=== PATIENT | female | born 1955 | race Caucasian/White ===

== ENCOUNTER 2016-10-05 11:01 | Emergency (ER) | payer BC ==
[~2016-10-05] VITALS: Ht 160 cm; Wt 102.3 kg
[2016-10-05 11:05] VITALS: TEMP 98
[2016-10-05] MEDS ORDERED: TOPAMAX50 MG PO (11:18)
[2016-10-05] MEDS ORDERED: VITAMIN D32000 I1 PO (11:18)
[2016-10-05] MEDS ORDERED: PRIL40 PO (11:19)
[2016-10-05] MEDS ORDERED: ZYRTEC 10MG10 MG PO (11:19)
[2016-10-05] MEDS ORDERED: ZANTAC 300300 MG PO (11:20)
[2016-10-05] MEDS ORDERED: CORTEF 20MG TAB20 MG PO (11:21)
[2016-10-05] MEDS ORDERED: SYNTHROID0.088 MG/T PO (11:21)
[2016-10-05] MEDS ORDERED: [UNRECOGNIZED DRUG - OTHER] (11:22)
[2016-10-05] MEDS ORDERED: PROMETRIUM100 MG PO (11:23)
[2016-10-05] MEDS ORDERED: ATARAX 25MG25 MG/TAB PO (11:23)
[2016-10-05] MEDS ORDERED: LASIX 40MG TABL40 MG PO (11:24)
[2016-10-05] MEDS ORDERED: CYTOMEL 2525 MCG/TAB PO (11:24)
[2016-10-05] MEDS ORDERED: VITAMIN C500 MG PO (11:24)
[2016-10-05] MEDS ORDERED: FERREX 150150 MG PO (11:25)
[2016-10-05] MEDS ORDERED: PREGNENOLONE (11:25)
[2016-10-05 12:18] LABS: BASO # 0.1 (0.0-0.2); BASO % 0.8 % (0.0-2.0); EOS # 0.2 (0.0-0.7); EOS % 2.8 % (0-4.0); GRAN # 3.2 (1.4-6.5); GRAN % 52.8 % (42.2-75.2); HEMATOCRIT 41.3 % (37.0-47.0); HEMOGLOBIN 13.1 g/dl (12.5-16.0); LYMPH # 2.3 (1.2-3.4); LYMPH % 36.7 % (20.0-51.0); MEAN CELL VOLUME 95 fl (80.0-100.0); MEAN CORPUSCULAR HEMOGLOBIN 30 pg (27.0-31.0); MEAN CORPUSCULAR HGB CONC 32 g/dl (33.0-37.0); MEAN PLATELET VOLUME 9.8 fl (7.4-10.4); MONO # 0.4 (0.1-0.6); MONO % 6.7 % (1.7-9.3); PLATELET COUNT 247 K/mm3 (130-400); RED BLOOD COUNT 4.35 M/mm3 (4.10-5.30); REDCELL DISTRIBUTION WIDTH-CV 13.3 % (11.5-14.5); WHITE BLOOD COUNT 6.1 K/mm3 (4.8-10.8)
[2016-10-05 12:42] LABS: PH 5 (5-8); URINE APPEARANCE Cloudy; URINE BACTERIA Rare /hpf; URINE BILIRUBIN Negative (NEGATIVE); URINE BLOOD Negative (NEGATIVE); URINE COLOR Amber; URINE GLUCOSE Negative (NEGATIVE); URINE KETONE Negative (NEGATIVE); URINE UROBILINOGEN Negative (NEGATIVE)
[2016-10-05 12:46] LABS: ADJUSTED CALCIUM 9.2 mg/dL (8.4-10.2); ALBUMIN 3.7 gm/dL (3.5-5.0); BILIRUBIN,TOTAL 1.2 mg/dL (0.0-1.0); CREATININE, serum 0.88 mg/dL (0.52-1.25); MAGNESIUM 2.4 mg/dL (1.6-2.3); PHOSPHOROUS 3.2 mg/dL (2.5-4.5); POTASSIUM 3.6 mmol/L (3.4-5.0); TOTAL PROTEIN 6.9 gm/dL (6.4-8.2)
[2016-10-05 15:47] VITALS: BP 134/78; PULSE 78
== END 2016-10-05 15:45 | disposition home or self-care (01) ==
LOC: COL.ER 11:01
PROVIDERS: Emergency Medicine
DX: R53.1 Weakness (principal); E03.9 Hypothyroidism, unspecified; R51 Headache
CPT/HCPCS: J1720; J7030

== ENCOUNTER 2018-05-11 22:47 | Emergency (ER) | payer BC ==
[~2018-05-11] VITALS: Ht 157.5 cm; Wt 100.0 kg
[~2018-05-11 22:47] MED LIST: ATARAX 25MG25 MG/TAB PO; CORTEF 20MG TAB20 MG PO; CYTOMEL 2525 MCG/TAB PO; FERREX 150150 MG PO; LASIX 40MG TABL40 MG PO; PREGNENOLONE; PRIL40 PO; PROMETRIUM100 MG PO; SYNTHROID0.088 MG/T PO; TOPAMAX 25MG25 M1 PO; VITAMIN C500 MG PO; VITAMIND3 5000 PO; ZANTAC 300300 MG PO; ZYRTEC 10MG10 MG PO; [UNRECOGNIZED DRUG - OTHER]
[2018-05-11 22:56] VITALS: TEMP 97.9
[2018-05-11 23:47] LABS: BASO # 0.1 (0.0-0.2); BASO % 0.7 % (0.0-2.0); EOS # 0.2 (0.0-0.7); EOS % 2.2 % (0-4.0); GRAN # 3.3 (1.4-6.5); HEMATOCRIT 39.6 % (37.0-47.0); HEMOGLOBIN 12.8 g/dl (12.5-16.0); LYMPH # 2.7 (1.2-3.4); LYMPH % 40.1 % (20.0-51.0); MEAN CELL VOLUME 96 fl (80.0-100.0); MEAN CORPUSCULAR HEMOGLOBIN 31 pg (27.0-31.0); MEAN CORPUSCULAR HGB CONC 32 g/dl (33.0-37.0); MEAN PLATELET VOLUME 9.8 fl (7.4-10.4); MONO # 0.5 (0.1-0.6); MONO % 7.9 % (1.7-9.3); PLATELET COUNT 235 K/mm3 (130-400); RED BLOOD COUNT 4.13 M/mm3 (4.10-5.30); REDCELL DISTRIBUTION WIDTH-CV 13.1 % (11.5-14.5)
[2018-05-12 00:04] LABS: ALANINE AMINOTRANSFERASE 21 U/L (9-52); ALBUMIN 3.8 gm/dL (3.5-5.0); ALKALINE PHOSPHATASE 56 U/L (50-136); ANION GAP 12 mmol/L (7-16); AST,SGOT 15 U/L (15-37); BILIRUBIN,TOTAL 0.5 mg/dL (0.0-1.0); BLOOD UREA NITROGEN 18 mg/dL (7-17); CALCIUM 8.6 mg/dL (8.4-10.2); CARBON DIOXIDE 26 mmol/L (22-30); CHLORIDE 105 mmol/L (98-107); CREATININE, serum 1.28 mg/dL (0.52-1.25); GLUCOSE 90 mg/dL (74-106); LIPASE 212 U/L (23-300); POTASSIUM 3.4 mmol/L (3.4-5.0); SODIUM 144 mmol/L (137-145); TOTAL PROTEIN 6.9 gm/dL (6.4-8.2)
[2018-05-12 00:16] LABS: TROPONIN-I < 0.012 ng/mL (0.000-0.034)
[2018-05-12 00:40] LABS: COLLECTION METHOD CLEAN CATCH
[2018-05-12 00:46] LABS: MUCOUS Present /lpf; PH 6 (5-8); URINE APPEARANCE Hazy; URINE BACTERIA None Seen /hpf; URINE BILIRUBIN Negative (NEGATIVE); URINE BLOOD Negative (NEGATIVE); URINE COLOR Yellow; URINE GLUCOSE Negative (NEGATIVE); URINE KETONE Negative (NEGATIVE); URINE LEUKOCYTE ESTERASE Negative (NEGATIVE); URINE NITRATE Negative (NEGATIVE); URINE PROTEIN(semi-quant) Negative (NEGATIVE); URINE RBC 0-2 /hpf; URINE UROBILINOGEN Negative (NEGATIVE)
[2018-05-12] MEDS ORDERED: CARAFATE 1GM1 G PO (04:06)
[2018-05-12 04:15] VITALS: BP 138/83; PULSE 56
[2018-05-12] MEDS ORDERED: CORTEF 10MG TAB10 MG PO (04:36)
[2018-05-12] MEDS ORDERED: SYNTHROID0.1 MG/TAB PO (04:38)
[2018-05-12] MEDS ORDERED: CYANOCOBAL1000 MCG/M IM (04:39)
[2018-05-12] MEDS ORDERED: FLONASE NASAL S16 GM NS (04:39)
== END 2018-05-12 04:30 | disposition home or self-care (01) ==
LOC: COL.ER 22:47
PROVIDERS: Emergency Medicine
DX: R07.89 Other chest pain (principal); K21.9 Gastro-esophageal reflux disease without esophagitis; E78.5 Hyperlipidemia, unspecified; E11.9 Type 2 diabetes mellitus without complications; I25.10 Atherosclerotic heart disease of native coronary artery without angina pectoris; Z90.710 Acquired absence of both cervix and uterus
CPT/HCPCS: J2405; J3010; J7030

== ENCOUNTER 2021-08-23 17:16 | Day surgery (SDC) | payer BC ==
[~2021-08-23 17:16] MED LIST changes: +CARAFATE 1GM1 G PO; +CORTEF 10MG TAB10 MG PO; +CYANOCOBAL1000 MCG/M IM; +FLONASE NASAL S16 GM NS; +SYNTHROID0.1 MG/TAB PO
[2021-08-23] MEDS ORDERED: DECADRON 1MG TAB1 MG PO (17:37)
[2021-08-23] MEDS ORDERED: PEPCID 20MG TAB20 MG PO (17:42)
[2021-08-23] MEDS ORDERED: LEXAPRO 5MG5 MG PO ×2 (17:43→17:44)
--- NOTE | 2021-08-23 18:26 | NUR ---
PT ADMITTED TO THE UNIT. ADMISSION INTAKE AND ASSESSMENT COMPLETED. IV SITE STARTED, NS RUNNING. PT CHANGED INTO GOWN AND CONSENT SIGNED.
--- NOTE | 2021-08-23 18:27 | NUR ---
PT OFF OF UNIT FOR PROCEDURE AT THIS TIME.
[2021-08-23] MEDS ORDERED: NORCO 325 MG-51 TAB PO (19:11)
[2021-08-23] MEDS ORDERED: PYRIDIUM 100MG100 MG PO (19:11)
[2021-08-23 20:15] VITALS: BP 153/81; PULSE 78; TEMP 97.9
--- NOTE | 2021-08-23 20:15 | NUR ---
PT ARRIVES TO ROOM FROM SURGERY @ 1999. PT IS A&O, OXYGEN IS ON @ 2L NC. PT'S SPOUSE IS @ BEDSIDE. PT DENIES PAIN BUT DOES URGE TO URINATE. PT AMBULATES TO BR WITH SBA ASSISTANCE, TOLERATES WELL. URINE IS REDDISH IN COLOR ET CLOUDY. PT IS ASSISTED BACK INTO BED. PT'S OXYEGN SATS MAINTAIN @ 96% ON RA, OXYGEN TAKEN OFF. IVF INFUSING. PT DENIES ANY NAUSEA ET STATES THAT SHE IS HUNGRY ET READY TO EAT. PT DRINKS WATER WITH NO PROBLEMS, GIVEN ROOM TRAY FROM KITCHEN TO EAT.
[2021-08-23 20:30] VITALS: BP 158/98; PULSE 93
[2021-08-23 20:45] VITALS: BP 148/84; PULSE 111
[2021-08-23 21:00] VITALS: BP 130/76; PULSE 93
[2021-08-23 21:30] VITALS: BP 125/81; PULSE 103
[2021-08-23 21:45] VITALS: BP 128/87; PULSE 90; TEMP 97.3
--- NOTE | 2021-08-23 21:55 | NUR ---
PT HAS TOLERATED EATING ET DRINKING WELL, DENIES NAUSEA OR PAIN, IS SITTING UP IN BED, PLEASANT ET TALKATIVE. PT HAS GONE TO BR X2 TO URINATE. URINE IS PINK. IVF INFUSING. PT STATES THAT SHE FEELS LIKE SHE IS READY TO GO HOME. PT ET SPOUSE ARE GIVEN DISCHARGE INSTRUCTIONS. PT DEMONSTRATES UNDERSTANDING, DENIES OTHER QUESTIONS OR CONCERNS. PT AMBULATES TO ET DRESSES SELF. IVF STOPPED ET PERIPHERAL IV DISCONTINUED. CATHETER IS INTACT. PT IS TAKEN DOWN TO ED ENTRANCE WITH PERSONAL BELONGINGS TO MEET SPOUSE VIA WHEELCHAIR.
== END 2021-08-23 21:55 | disposition home or self-care (01) ==
LOC: SDCO 17:16 → MEDICAL 17:19 → SDCO 21:55
DX: N20.1 Calculus of ureter (principal); K21.9 Gastro-esophageal reflux disease without esophagitis; N39.0 Urinary tract infection, site not specified; G43.909 Migraine, unspecified, not intractable, without status migrainosus; Z85.850 Personal history of malignant neoplasm of thyroid; Z90.710 Acquired absence of both cervix and uterus; Z79.899 Other long term (current) drug therapy
CPT/HCPCS: OP; C1769; C1894; C2617; J1100; J1720; J1885; J2405; J2704; J3010; Q9967